=== PATIENT | female | born 1950 | race Caucasian/White ===

== ENCOUNTER 2019-06-27 11:00 | Observation (INO) ==
[~2019-06-27 11:00] MED LIST: Total Joint Mixture (50 ml) IR ONE
[2019-06-27] MEDS ORDERED: Clindamycin 900 MG/50 ML 900 MG/50 ML IV.SOLN IVPB ONE (11:49)
[2019-06-27] MEDS ORDERED: Ringers Solution, Lactated 1,000 ML IVC SCH (12:00)
[2019-06-27 12:19] LABS: INR 1.6; Prothrombin Time 18.6 Seconds (9.4-12.1)
[2019-06-27] MEDS ORDERED: Propofol 500 MG/50 ML INFUS..BTL ONE (13:08)
[2019-06-27] MEDS ORDERED: Ondansetron 4 MG/2 ML VIAL ONE (13:08)
[2019-06-27] MEDS ORDERED: Lidocaine -MPF 2% 2 ML VIAL ONE (13:08)
[2019-06-27] MEDS ORDERED: *HR* FentaNYL (PF) 100 MCG/2 ML VIAL ONE (13:22)
[2019-06-27] MEDS ORDERED: *HR* Midazolam HCl 2 MG/2 ML VIAL ONE (13:22)
[2019-06-27] MEDS ORDERED: Acetaminophen IV 1,000 MG/100 ML INFUS..BTL IVPB ONE (13:26)
[2019-06-27] MEDS ORDERED: Gabapentin 300 MG CAPSULE PO ONE (13:26)
[2019-06-27] MEDS ORDERED: *HR* OxyCODONE ER (12 HR) 10 MG TABLET PO ONE (13:27)
[2019-06-27] MEDS ORDERED: *HR* HYDROmorphone (PF) 1 MG/ML SYRINGE IVP PRN (13:29)
[2019-06-27] MEDS ORDERED: Ondansetron 4 MG/2 ML VIAL IVP ONE (13:29)
[2019-06-27] MEDS ORDERED: ROPIVACAINE/PF/NS 0.25% 1 EACH SYRINGE INTRAART ONE (13:40)
[2019-06-27] MEDS ORDERED: Ethanol\\Acetic Acid\\Na Ace\\Ben 1,000 ML IRRIG.SOLN IR ONE (13:58)
[2019-06-27] MEDS ORDERED: Lidocaine -MPF 4% 5 ML AMPUL ONE (14:16)
[2019-06-27] MEDS ORDERED: *HR* Succinylcholine 200 MG/10 ML VIAL IVP ONE (14:16)
[2019-06-27] MEDS ORDERED: *HR* Rocuronium Bromide 50 MG/5 ML VIAL ONE (14:29)
[2019-06-27] MEDS ORDERED: Dexamethasone 4 MG/ML VIAL ONE (14:30)
[2019-06-27] MEDS ORDERED: *HR* HYDROMORPHONE 2 MG/ML VIAL ONE (14:41)
[2019-06-27] MEDS ORDERED: *HR* PHENYLEPHRINE 1,000 MCG/10 ML SYRINGE IVP ONE (14:48)
[2019-06-27] MEDS ORDERED: Neostigmine Methylsulfate 3 MG/3 ML SYRINGE ONE ×2 (15:13→15:34)
[2019-06-27 16:30] LABS: Hematocrit 35.4 % (35.3-44.9); Hemoglobin 12.3 g/dL (11.5-15.4)
[2019-06-27 18:35] LABS: ABG Base Excess -1 mEq/L (-2 to 3); ABG HCO3 26 mEq/L (21-27); ABG Oxygen Saturation 98 % (95-98); ABG PCO2 55 mmHg (35-45); ABG PH 7.29 pH Units (7.32-7.45); ABG PO2 111 mmHg (85-104); ABG TCO2 28 mEq/L (20-26); Blood Gas Modality NIV
[2019-06-27] MEDS ORDERED: Naloxone 0.4 MG/ML INJ ONE (19:34)
[2019-06-27] MEDS ORDERED: Naloxone 0.4 MG/ML INJ IVP PRN (20:38)
[2019-06-27] MEDS ORDERED: Temazepam 15 MG CAPSULE PO PRN (20:38)
[2019-06-27] MEDS ORDERED: Sennosides 8.6 MG TABLET PO PRN (20:38)
[2019-06-27] MEDS ORDERED: *HR* Promethazine 25 MG/ML VIAL IVP PRN (20:38)
[2019-06-27] MEDS ORDERED: MOM Conc 10 ML UD.LIQ PO PRN (20:38)
[2019-06-27] MEDS ORDERED: traMADol 50 MG TABLET PO PRN (20:38)
[2019-06-27] MEDS ORDERED: Scopolamine Patch 1.5 MG PATCH.TD72 TD ONE (21:06)
[2019-06-27] MEDS: Ringers Solution, Lactated 1,000 ML IVC SCH (22:12)
[2019-06-27] MEDS: Clindamycin 900 MG/50 ML 900 MG/50 ML IV.SOLN IVPB SCH (22:12)
[2019-06-27] MEDS: Famotidine 20 MG TABLET PO SCH (22:13)
[2019-06-27] MEDS: Ammonium Lactate 30 APPL/225 GM BOTTLE TP SCH (22:13)
[2019-06-27] MEDS: *HR* Enoxaparin 40 MG/0.4 ML SYRINGE SQ SCH (22:13)
[2019-06-27] MEDS: Ascorbic Acid 500 MG TABLET PO SCH (22:13)
[2019-06-27] MEDS ORDERED: PRAVASTATIN 40 MG PO SCH (22:15)
[2019-06-28 04:32] LABS: Basophils % 0.1 %; Immature Granulocytes % 0.4 % (0-4); Lymphocytes # 0.9 K/mcL (0.6-4.6); Lymphocytes % 8.5 %; Mean Corpuscular HGB Conc 32.8 g/dL (31.6-35.5); Mean Corpuscular Volume 100.6 fL (83.0-100.0); Mean Platelet Volume 10.2 fL (9.4-12.4); Monocytes # 0.5 K/mcL (0.0-1.3); Monocytes % 4.3 %; Neutrophils # 9.1 K/mcL (1.6-8.9); Platelet Count 187 K/mcL (140-400); Red Blood Count 3.18 M/mcL (3.82-4.97); Red Cell Distribution Width 12.5 % (11.5-14.5); Segmented Neutrophils % 86.7 %; White Blood Count 10.5 K/mcL (4.3-11.1)
[2019-06-28 04:35] LABS: Hemoglobin 10.5 g/dL (11.5-15.4)
[2019-06-28 04:39] LABS: BUN/Creatinine Ratio 29 (6-26); Blood Urea Nitrogen 19 mg/dL (8-23); Calcium 8.2 mg/dL (8.6-10.3); Carbon Dioxide 25 mEq/L (23-29); Chloride 104 mEq/L (98-107); Glucose 183 mg/dL (70-105); Osmolality,Calculated 291 (280-300); Potassium 3.8 mEq/L (3.5-5.1); Sodium 137 mEq/L (136-145); eGFR For African Americans > 60 (> 60); eGFR For Non-African Americans > 60 (> 60)
[2019-06-28] MEDS: Clindamycin 900 MG/50 ML 900 MG/50 ML IV.SOLN IVPB SCH (04:49)
[2019-06-28] MEDS: Ascorbic Acid 500 MG TABLET PO SCH ×2 (07:50→15:47)
[2019-06-28] MEDS: Multivit/Ca/Min/Fe/FA 1 TAB TABLET PO SCH ×2 (07:50→07:52)
[2019-06-28] MEDS: Cholecalciferol (D-3) 1,000 UNIT (25MCG) TABLET PO SCH (07:50)
[2019-06-28] MEDS: valACYclovir 500 MG TABLET PO SCH (07:50)
[2019-06-28] MEDS: Famotidine 20 MG TABLET PO SCH ×2 (07:50→21:27)
[2019-06-28] MEDS: *HR* Enoxaparin 40 MG/0.4 ML SYRINGE SQ SCH ×2 (07:51→21:27)
[2019-06-28] MEDS: Ammonium Lactate 30 APPL/225 GM BOTTLE TP SCH ×2 (07:51→22:56)
[2019-06-28] MEDS: hydroCHLOROthiazide 25 MG TABLET PO SCH (07:51)
[2019-06-28] MEDS: amLODIPine 5 MG TABLET PO SCH (07:52)
[2019-06-28] MEDS ORDERED: Ketorolac 15 MG/ML VIAL IVP ONE (08:12)
[2019-06-28] MEDS: Ondansetron 4 MG/2 ML VIAL IVP PRN ×2 (10:11→18:40)
[2019-06-28] MEDS: HYDROcodone BIT/Homatropine 5 MG TABLET PO PRN ×2 (12:39→18:40)
[2019-06-28 13:15] LABS: INR 1.8; Prothrombin Time 20.1 Seconds (9.4-12.1)
[2019-06-28] MEDS: PRAVASTATIN 40 MG PO SCH (17:28)
[2019-06-28] MEDS ORDERED: *HR* Warfarin 5 MG TABLET PO SCH (18:00)
[2019-06-29 06:25] LABS: Basophils % 0.3 %; Eosinophils # 0.1 K/mcL (0.0-0.6); Eosinophils % 1.2 %; Hematocrit 29.1 % (35.3-44.9); Hemoglobin 9.9 g/dL (11.5-15.4); Immature Granulocytes % 0.3 % (0-4); Lymphocytes # 2.6 K/mcL (0.6-4.6); Lymphocytes % 39.2 %; Mean Platelet Volume 9.9 fL (9.4-12.4); Monocytes # 0.6 K/mcL (0.0-1.3); Monocytes % 9.4 %; Neutrophils # 3.3 K/mcL (1.6-8.9); Platelet Count 171 K/mcL (140-400); Segmented Neutrophils % 49.6 %; White Blood Count 6.7 K/mcL (4.3-11.1)
[2019-06-29 06:42] LABS: Calcium 8.6 mg/dL (8.6-10.3); Potassium 4.2 mEq/L (3.5-5.1)
[2019-06-29] MEDS: Ammonium Lactate 30 APPL/225 GM BOTTLE TP SCH ×2 (08:08→20:32)
[2019-06-29] MEDS: Multivit/Ca/Min/Fe/FA 1 TAB TABLET PO SCH ×2 (08:08→08:14)
[2019-06-29] MEDS: amLODIPine 5 MG TABLET PO SCH (08:13)
[2019-06-29] MEDS: hydroCHLOROthiazide 25 MG TABLET PO SCH (08:13)
[2019-06-29] MEDS: Famotidine 20 MG TABLET PO SCH (08:13)
[2019-06-29] MEDS: Ascorbic Acid 500 MG TABLET PO SCH ×2 (08:13→15:54)
[2019-06-29] MEDS: valACYclovir 500 MG TABLET PO SCH (08:14)
[2019-06-29] MEDS: *HR* Enoxaparin 40 MG/0.4 ML SYRINGE SQ SCH (08:14)
[2019-06-29] MEDS: Cholecalciferol (D-3) 1,000 UNIT (25MCG) TABLET PO SCH (08:14)
[2019-06-29] MEDS: HYDROcodone BIT/Homatropine 5 MG TABLET PO PRN ×3 (09:19→22:46)
[2019-06-29 09:30] LABS: INR 1.5; Prothrombin Time 17.5 Seconds (9.4-12.1)
[2019-06-29] MEDS: *HR* OxyCODONE Immed Rel 5 MG TABLET PO PRN ×3 (10:53→20:32)
[2019-06-29] MEDS: Ringers Solution, Lactated 1,000 ML IVC SCH ×3 (10:54→22:51)
[2019-06-29] MEDS ORDERED: Gabapentin 100 MG CAPSULE PO SCH (12:00)
[2019-06-29 12:26] LABS: Adenovirus Not Detected (Not Detect); Bordetella Pertussis Not Detected (Not Detect); Chlamydophila pneumoniae Not Detected (Not Detect); Coronavirus 229E Not Detected (Not Detect); Coronavirus HKU1 Not Detected (Not Detect); Coronavirus NL63 Not Detected (Not Detect); Coronavirus OC43 Not Detected (Not Detect); Human Metapneumovirus Not Detected (Not Detect); Human Rhinovirus/Enterovirus Not Detected (Not Detect); Influenza A Subtype 2009 H1 Not Detected (Not Detect); Influenza A Untypeable Not Detected (Not Detect); Influenza B Not Detected (Not Detect); Mycoplasma pneumoniae Not Detected (Not Detect); Parainfluenza Virus 1 Not Detected (Not Detect); Parainfluenza Virus 2 Not Detected (Not Detect); Parainfluenza Virus 3 Not Detected (Not Detect); Parainfluenza Virus 4 Not Detected (Not Detect); Respiratory Syncytial Virus Not Detected (Not Detect)
[2019-06-29 15:49] LABS: Calcium 8.6 mg/dL (8.6-10.3); Potassium 3.6 mEq/L (3.5-5.1)
[2019-06-29] MEDS: Acetaminophen 325 MG TABLET PO SCH (16:15)
[2019-06-29] MEDS ORDERED: *HR* Warfarin 2.5 MG TABLET PO SCH (18:00)
[2019-06-29] MEDS: *HR* Enoxaparin 60 MG/0.6 ML SYRINGE SQ SCH (18:24)
[2019-06-29] MEDS: Gabapentin 300 MG CAPSULE PO SCH (20:31)
[2019-06-29] MEDS: PRAVASTATIN 40 MG PO SCH (20:32)
[2019-06-29] MEDS: Ondansetron 4 MG/2 ML VIAL IVP PRN (22:47)
[2019-06-30] MEDS: Acetaminophen 325 MG TABLET PO SCH ×3 (00:04→12:07)
[2019-06-30 01:09] LABS: Basophils % 0.3 %; Eosinophils % 0.6 %; Hematocrit 28.4 % (35.3-44.9); Hemoglobin 9.3 g/dL (11.5-15.4); Immature Granulocytes % 0.3 % (0-4); Lymphocytes # 1.7 K/mcL (0.6-4.6); Lymphocytes % 24.5 %; Mean Corpuscular HGB Conc 32.7 g/dL (31.6-35.5); Mean Corpuscular Hemoglobin 32.9 pg (28.0-33.3); Mean Corpuscular Volume 100.4 fL (83.0-100.0); Mean Platelet Volume 10.2 fL (9.4-12.4); Monocytes # 0.7 K/mcL (0.0-1.3); Monocytes % 9.4 %; Neutrophils # 4.6 K/mcL (1.6-8.9); Platelet Count 163 K/mcL (140-400); Red Blood Count 2.83 M/mcL (3.82-4.97); Red Cell Distribution Width 12.7 % (11.5-14.5); Segmented Neutrophils % 64.9 %; White Blood Count 7.1 K/mcL (4.3-11.1)
[2019-06-30 01:22] LABS: BUN/Creatinine Ratio 21 (6-26); Blood Urea Nitrogen 16 mg/dL (8-23); Calcium 8.2 mg/dL (8.6-10.3); Carbon Dioxide 29 mEq/L (23-29); Chloride 104 mEq/L (98-107); Glucose 127 mg/dL (70-105); Osmolality,Calculated 289 (280-300); Potassium 3.6 mEq/L (3.5-5.1); Sodium 138 mEq/L (136-145); eGFR For African Americans > 60 (> 60); eGFR For Non-African Americans > 60 (> 60)
[2019-06-30] MEDS: *HR* Enoxaparin 60 MG/0.6 ML SYRINGE SQ SCH (06:12)
[2019-06-30] MEDS: HYDROcodone BIT/Homatropine 5 MG TABLET PO PRN (06:21)
[2019-06-30] MEDS: Ascorbic Acid 500 MG TABLET PO SCH (08:48)
[2019-06-30] MEDS: Cholecalciferol (D-3) 1,000 UNIT (25MCG) TABLET PO SCH (08:48)
[2019-06-30] MEDS: Gabapentin 300 MG CAPSULE PO SCH ×2 (08:48→14:47)
[2019-06-30] MEDS: hydroCHLOROthiazide 25 MG TABLET PO SCH (08:48)
[2019-06-30] MEDS: amLODIPine 5 MG TABLET PO SCH (08:49)
[2019-06-30] MEDS: Multivit/Ca/Min/Fe/FA 1 TAB TABLET PO SCH (08:49)
[2019-06-30] MEDS: valACYclovir 500 MG TABLET PO SCH (08:49)
[2019-06-30] MEDS ORDERED: Famotidine 20 MG TABLET PO SCH (09:00)
[2019-06-30] MEDS: Ammonium Lactate 30 APPL/225 GM BOTTLE TP SCH (09:02)
[2019-06-30] MEDS: *HR* OxyCODONE Immed Rel 5 MG TABLET PO PRN ×2 (10:01→17:31)
[2019-06-30 10:25] LABS: INR 1.5; Prothrombin Time 16.9 Seconds (9.4-12.1)
[2019-06-30 12:58] VITALS: BP 136/68
== END 2019-06-30 17:50 | disposition home health service (06) ==
LOC: SAMDAY 11:00 → 3NENU 11:00
PROVIDERS: ADMIT Orthopaedic Surgery; ATTEND Orthopaedic Surgery